=== PATIENT | female | born 1970 | race Caucasian/White ===

== ENCOUNTER 2018-08-07 13:19 | Outpatient (RCR) | payer MEDICARE, OTHER, SELFPAY | END 2018-08-07 13:55 | disposition home or self-care (01) | LOC: PT 13:19 | PROVIDERS: Visit Provider Internal Medicine | DX: L97.411 Non-pressure chronic ulcer of right heel and midfoot limited to breakdown of skin (principal) | CPT/HCPCS: 97163; 97597 ==

== ENCOUNTER → 2018-08-07 14:48 | Outpatient (CLI) | payer MEDICARE, OTHER, SELFPAY ==
--- NOTE | 2018-08-07 15:32 | XR_ITS ---
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 TECHNIQUE: Left foot-3 views simulated weightbearing Right foot-3 views simulated weightbearing COMPARISON :None - LEFT FOOT-3 views weightbearing Osseous structures at the left foot appear intact no acute findings. Metatarsals and toes are intact. Joint spaces are fairly well maintained with only borderline narrowing at the tarsometatarsal metatarsal joints 2, 3 in question. Adequate plantar arch Moderate calcaneal spur measuring up to 7.5 mm length. Slightly additional thin wispy feature along lateral aspect of this. No swelling or thickening calcaneal spur and heel pad. If anything heel and slightly thin. . Edema and soft tissue swelling is seen at the dorsal aspect of the forefoot lateral view as well as likely along the the lateral forefoot overlying fifth metatarsal... Clinical correlation required. There is diffuse faint atherosclerotic calcification of small vessels compatible with history of diabetes. IMPRESSION Osseous structures intact. Mild soft tissue swelling left forefoot most most evident dorsal and extending lateral. Plantar calcaneal spur RIGHT FOOT-3 views weightbearing Osseous structures appear intact no fracture. No periosteal reaction. Bones are fairly well mineralized. Joint spaces are actually fairly well-maintained . Adequate plantar arch Diffuse soft tissue swelling of the right foot most evident dorsal aspect of foot-. Also is slightly more evident lateral than medial.. Swelling extends into the ankle -Small plantar calcaneal spur 5 mm length. Diffuse faint atherosclerotic calcification of small vessels compatible with history of diabetes. IMPRESSION: -------- Diffuse soft tissue more evident at the dorsal aspect of Right foot than left foot. swelling extends to the right lower leg and ankle Small vessel calcification reflecting diabetes.
[2018-08-07 16:32] LABS: Basophils # 0.1 K/mm3 (0-0.2); Basophils % 0.7 % (0.1-2.0); Eosinophils # 0.1 K/mm3 (0.0-0.4); Eosinophils % 1.1 % (0.1-12.0); Hematocrit 38.9 % (37.0-47.0); Hemoglobin 11.5 g/dL (12.2-16.2); Lymphocytes # 0.7 K/mm3 (0.7-4.5); Lymphocytes % 9.3 % (10-50); Mean Corpuscular HGB Conc 29.6 g/dL (31.8-35.4); Mean Corpuscular Hemoglobin 28.8 pg (27.0-31.2); Mean Corpuscular Volume 97.1 fl (81-99); Monocytes # 0.4 K/mm3 (0.1-1.0); Monocytes % 4.9 % (1.7-9.3); Neutrophils # 6.1 K/mm3 (1.8-7.8); Neutrophils % 84.1 % (37.0-80.0); Platelet Count 286 K/mm3 (142-424); Red Blood Count 4.01 M/mm3 (4.20-5.40); Red Cell Distribution Width 17.9 % (11.5-17.5); White Blood Count 7.3 K/mm3 (4.8-10.8)
[2018-08-07 17:51] LABS: Alanine Aminotransferase 26 U/L (12-78); Albumin Level 2.9 gm/dL (3.4-5.0); Albumin/Globulin Ratio 0.7 (1.1-1.8); Alkaline Phosphatase 302 U/L (46-116); Anion Gap 20.7 mEq/L (5-15); Aspartate Amino Transferase 20 U/L (15-37); Bilirubin,Total 0.5 mg/dL (0.2-1.0); Blood Urea Nitrogen 47 mg/dL (7-18); C-Reactive Protein 4.3 mg/L (0.0-0.9); Calcium 8.5 mg/dL (8.5-10.1); Carbon Dioxide 21 mmol/L (21.0-32.0); Chloride 99 mmol/L (98-107); Estimated Glomerular Filt Rate 7 ml/min (>60); GFR (African American) 9 ML/MIN (>60); Globulin 4.2 gm/dl (1.3-3.2); Glucose 352 mg/dL (74-106); Potassium 5.7 mmoL/L (3.5-5.1); Sodium 135 mmol/L (136-145); Total Protein,Serum 7.1 gm/dL (6.4-8.2)
[2018-08-07 17:59] LABS: Creatinine,Serum 6.17 mg/dL (0.55-1.02)
[2018-08-07 18:22] LABS: Erythrocyte Sedimentation Rate 14 mm/hr (0-20)
[2018-08-07 20:47] LABS: Hemoglobin A1C 9.6 % (0.0-7.0)
== END ==
PROVIDERS: PCP Family Medicine; Visit Provider Podiatrist
DX: Z51.89 Encounter for other specified aftercare (principal); E10.29 Type 1 diabetes mellitus with other diabetic kidney complication; L97.412 Non-pressure chronic ulcer of right heel and midfoot with fat layer exposed
CPT/HCPCS: 36415; 73630; 80053; 83036; 85025; 85651; 86140; 87070; 87077; 87186; 87205

== ENCOUNTER → 2018-08-16 14:51 | Outpatient (CLI) | payer MEDICARE, OTHER, SELFPAY ==
--- NOTE | 2018-08-16 14:52 | US_ITS ---
US Arterial Ankle Brachial Ind History: Claudication, restless legs, nonhealing wounds ITS.REASON: Bilateral Diabetic Foot Ulcers ORDERING PHYSICIAN: Nazanin Reynoso DPM PATIENT AGE: 47 years TECHNIQUE: Segmental pressures obtained of both right and left leg. These are compared to brachial blood pressure to yield index at each level sampled including summary KALA. The data sheets from the procedure are available in PACS FINDINGS Rest study only performed today No prior studies available for comparison. Blood pressures reported are in millimeters mercury. RIGHT LEG KALA = noncompressible. RIGHT LEG TBI=0.37 Brachial BP: 183 Thigh BP: >254 Calf BP: 212 Ankle PT: >254 Ankle DP : >254 Digit =67 LEFT LEG KALA = noncompressible LEFT LEG TBI= 0.53 Brachial BPD: 137 Thigh BP: >254 Calf BP: >254 Ankle PT:>254 Ankle DP: >254 Digit = 97 Pulses and waveforms: Diminished waveforms. Normal pulses IMPRESSION: 1. The ABIs are not calculated due to noncompressibility of the vessels. 2. The TBI is are low on both sides slightly worse on the right suggesting small vessel disease 3. There is extreme difference in the brachial pulses with the left left side 46 points lower than the right side. This suggests a stenosis of either the left subclavian, axillary, or brachial artery. CT angiography may confirm if clinically warranted.
[2018-08-16 16:21] LABS: Basophils % 0.4 % (0.1-2.0); Eosinophils % 0.5 % (0.1-12.0); Hematocrit 46.5 % (37.0-47.0); Lymphocytes # 0.5 K/mm3 (0.7-4.5); Lymphocytes % 8.7 % (10-50); Mean Corpuscular Hemoglobin 28.4 pg (27.0-31.2); Mean Corpuscular Volume 101.6 fl (81-99); Mean Platelet Volume 8.3 fl (7.4-10.4); Monocytes # 0.2 K/mm3 (0.1-1.0); Monocytes % 2.8 % (1.7-9.3); Neutrophils # 5.4 K/mm3 (1.8-7.8); Neutrophils % 87.5 % (37.0-80.0); Platelet Count 185 K/mm3 (142-424); Red Blood Count 4.58 M/mm3 (4.20-5.40); Red Cell Distribution Width 16.7 % (11.5-17.5); White Blood Count 6.2 K/mm3 (4.8-10.8)
[2018-08-16 16:27] LABS: MANUAL DIFFERENTIAL MANUAL DIFFERENTIAL (MANUAL DIFF)
[2018-08-16 17:03] LABS: INR 8.92 (0.9-1.1); Prothrombin Time 86.2 seconds (9.4-11.8)
[2018-08-16 18:16] LABS: Eosinophils % 1 % (0-3); Lymphocytes % 8 % (10-50); Macrocytosis 1+; Monocytes % 2 % (2-9); Neutrophils % 89 % (42-76); Platelet Estimate Normal; Total Cells Counted 100
[2018-08-16 18:17] LABS: Hypochromasia 2+
[2018-08-16 18:18] LABS: Erythrocyte Sedimentation Rate 20 mm/hr (0-20)
[2018-08-16 18:39] LABS: Alanine Aminotransferase 34 U/L (12-78); Albumin Level 2.9 gm/dL (3.4-5.0); Albumin/Globulin Ratio 0.6 (1.1-1.8); Alkaline Phosphatase 406 U/L (46-116); Anion Gap 27.7 mEq/L (5-15); Aspartate Amino Transferase 20 U/L (15-37); Bilirubin,Total 0.7 mg/dL (0.2-1.0); Blood Urea Nitrogen 56 mg/dL (7-18); C-Reactive Protein 4.5 mg/L (0.0-0.9); Carbon Dioxide 15 mmol/L (21.0-32.0); Chloride 90 mmol/L (98-107); Estimated Glomerular Filt Rate 9 ml/min (>60); GFR (African American) 10 ML/MIN (>60); Globulin 4.7 gm/dl (1.3-3.2); Potassium 5.7 mmoL/L (3.5-5.1); Sodium 127 mmol/L (136-145); Total Protein,Serum 7.6 gm/dL (6.4-8.2)
[2018-08-16 18:50] LABS: Creatinine,Serum 5.29 mg/dL (0.55-1.02); Glucose 817 mg/dL (74-106)
[2018-08-16 19:03] LABS: Hemoglobin A1C 9.8 % (0.0-7.0)
== END ==
PROVIDERS: PCP Family Medicine; Visit Provider Podiatrist
DX: I73.9 Peripheral vascular disease, unspecified (principal); Z51.89 Encounter for other specified aftercare; E11.621 Type 2 diabetes mellitus with foot ulcer; L97.519 Non-pressure chronic ulcer of other part of right foot with unspecified severity; L97.529 Non-pressure chronic ulcer of other part of left foot with unspecified severity
CPT/HCPCS: 36415; 80053; 83036; 85007; 85025; 85610; 85651; 86140; 93922

== ENCOUNTER → 2018-11-10 18:52 | Outpatient (CLI) | payer MEDICARE, OTHER, SELFPAY ==
[2018-11-10 19:15] LABS: Basophils # 0.1 K/mm3 (0-0.2); Basophils % 0.7 % (0.1-2.0); Eosinophils % 0.4 % (0.1-12.0); Hematocrit 31.3 % (37.0-47.0); Lymphocytes # 0.6 K/mm3 (0.7-4.5); Lymphocytes % 6.4 % (10-50); Mean Corpuscular HGB Conc 28.7 g/dL (31.8-35.4); Mean Corpuscular Hemoglobin 30.5 pg (27.0-31.2); Mean Corpuscular Volume 106.3 fl (81-99); Mean Platelet Volume 8.3 fl (7.4-10.4); Monocytes # 0.3 K/mm3 (0.1-1.0); Monocytes % 3.7 % (1.7-9.3); Neutrophils # 7.7 K/mm3 (1.8-7.8); Neutrophils % 88.8 % (37.0-80.0); Platelet Count 396 K/mm3 (142-424); Red Blood Count 2.95 M/mm3 (4.20-5.40); Red Cell Distribution Width 20.2 % (11.5-17.5); White Blood Count 8.7 K/mm3 (4.8-10.8)
[2018-11-10 19:17] LABS: MANUAL DIFFERENTIAL MANUAL DIFFERENTIAL (MANUAL DIFF)
[2018-11-10 19:28] LABS: INR 2.31 (0.9-1.1); Prothrombin Time 23.1 seconds (9.4-11.8)
[2018-11-10 19:33] LABS: Anisocytosis 1+; Hypochromasia 2+; Lymphocytes % 7 % (10-50); Neutrophils % 85 % (42-76); Platelet Estimate Normal; Polychromasia 1+; Rouleaux 2+; Total Cells Counted 100
[2018-11-10 19:37] LABS: Hemoglobin A1C 9.8 % (0.0-7.0)
== END ==
PROVIDERS: PCP Internal Medicine; Visit Provider Internal Medicine
DX: D64.9 Anemia, unspecified (principal); Z51.81 Encounter for therapeutic drug level monitoring; Z79.01 Long term (current) use of anticoagulants; Z79.899 Other long term (current) drug therapy
CPT/HCPCS: 83036; 85007; 85025; 85610